=== PATIENT | male | born 1955 | race African-American/Black ===

== ENCOUNTER 2025-02-09 04:40 | Emergency (ER) | payer MEDICARE, SELFPAY ==
[2025-02-09] VITALS (18 sets, daily range): BP systolic 119–170; BP diastolic 51–91; PULSE 61–82; RESP 10–16; TEMP 36.7; O2SAT 98–100
--- NOTE | 2025-02-09 04:46 | ECG_ITS ---
Test Date: 2025-02-09 04:49:33 Measurements Intervals [place] Rate: 62 P: 44 TN: 156 QRS: 52 QRSD: 99 T: 49 QT: 414 QTc: 421 Interpretive Statements SINUS RHYTHM No previous ECG available for comparison Electronically Signed On 02-09-2025 10:19:35 CDT by Stanislav Kim M.D.
[2025-02-09 04:57] LABS: Hematocrit 37.8 % (42.0-52.0); Hemoglobin 11.8 g/dL (14.0-18.0); Immature Granulocyte Percent A 0.3 % (0-0.5); Lymphocytes Absolute Auto 3.09 K/mm3 (0.9-3.2); Mean Corpuscular HGB Conc 31.2 g/dl (32-36); Mean Corpuscular Hemoglobin 26.6 pg (26-34); Mean Corpuscular Volume 85.3 fl (80-100); Nucleated Red Blood Cells Absolute Auto 0.000 K/mm3 (0.0-0.012); Nucleated Red Blood Cells Perc 0.0 % (0.0-0.2); Platelet Count Result 250 k/mm3 (150-375); Red Blood Count 4.43 M/mm3 (4.6-6.20); White Blood Count 7.4 K/mm3 (4.5-10.0)
[2025-02-09 05:14] LABS: Alanine Aminotransferase 13 U/L (6-50); Albumin Level 3.8 g/dL (3.5-5.1); Alkaline Phosphatase 53 U/L (38-126); Anion Gap 6 mmol/L (4-12); Aspartate Amino Transferase 24 U/L (17-59); Bilirubin,Total 0.4 mg/dL (0.2-1.3); Blood Urea Nitrogen 21 mg/dL (9-20); Calcium 8.9 mg/dL (8.4-10.2); Carbon Dioxide 27 mmol/L (22-30); Chloride 103 mmol/L (98-107); Estimated CRCL calculation 56 ml/min; Estimated Glomerular Filt Rate > 60; Glucose 145 mg/dL (65-110); Potassium 3.6 mmol/L (3.4-5.0); Sodium 136 mmol/L (137-145); Total Protein 7.0 g/dL (6.3-8.2)
--- OUTSIDE RECORDS SUMMARY | 2025-02-09 05:14 | XMS_ITS ---
Author Organization [facility] Address [address] [place] [address] Care Team Providers Care Mixing Machine Tender Cork Rod Name Role Phone Silvio Weston MD Primary Care Provider [phone] Anjel Smith MD Unavailable Onel Bass MD Unavailable [phone] Katya Kramer MD Unavailable [phone] Active Problems Problem Noted Date Diagnosed Date Colorectal cancer 07/06/2023 Current Treatment and Therapy Plans No current plan information found. Past Treatment and Therapy Plans Oncology Chemotherapy Treatment Plan Name Start Date Discontinue Date Treatment Medications Discontinue Reason Plan Provider Cycles [id number]: (Fluorouracil / Leucovorin / Oxaliplatin) 14 Day Cycles - GI 08/22/2023 08/23/2023 fluorouracil (ADRUCIL)leucov orinoxaliplatin (ELOXATIN) Patient Preference Katya Kramer MD Treatment not started Lifetime Dose Tracking * Chemical Lifetime Dose Automatic Entry Manual Entr y DLP 495 mGycm 495 mGycm 0 mGycm
--- OUTSIDE RECORDS SUMMARY | 2025-02-09 05:14 | XMS_ITS | Clinical Summary ---
Author Organization [facility] Address [address] [place] [address] Phone Care Team Providers Care Supervisor Printing Shop Name Role Phone Silvio Weston MD Primary Care Provider [phone] Anjel Smith MD Unavailable Medications amLODIPine (NORVASC) 5 MG Tablet Take 1 Tablet by mouth daily. 30 Tablet 3 3 Active Additional Information Patient taking differently:5 mg OralEVERY MORNING, Reported on 03/29/2023 fluticasone (FLONASE) 50 MCG/ACT Suspension 1 [place] by Nasal route in the morning and at bedtime. Use in each nostril as directed. 16 g 2 3 Active Additional Information Patient taking differently:1 [place] NasalPRN, Use in each nostril as directed., Reported on 03/29/2023 Loperamide HCl (Loperamide A-D) 2 MG TabletIndicatio ns:Rectal cancer,Encounte r for screening for other viral diseases Take 1 Tablet by mouth See Admin Instructions. Take 2 tablets (4 mg) at the onset of diarrhea, then one tablet (2 mg) with every subsequent episode of diarrhea for a maximum of 16 mg/day. Discontinue loperamide 12 hours after diarrhea resolves. 100 Tablet 1 4 Active ondansetron (ZOFRAN) 8 MG TabletIndicatio ns:Rectal cancer,Encounte r for screening for other viral diseases Take 1 Tablet by mouth See Admin Instructions. Take 8 mg twice daily for two days following chemotherapy. After may take one tablet every 8 hours as needed for nausea. 20 Tablet 3 4 Active prochlorperazin e (COMPAZINE) 10 MG TabletIndicatio ns:Rectal cancer,Encounte r for screening for other viral diseases Take 1 Tablet by mouth every 6 hours as needed for Nausea - 2nd line. 40 Tablet 2 4 Active methylPREDNISol one (MEDROL DOSPACK) 4 MG Tablet Therapy Pack Use as per instructions on package. 21 Tablet 4 Active albuterol 108 (90 Base) MCG/ACT Aerosol Solution take 1-2 Puffs by inhalation every 6 hours as needed for Wheezing. 8.5 g 2 4 Active Active Problems Problem Noted Date Diagnosed Date Overlapping malignant neoplasm of colon 07/12/19 24 Encounter for screening for other viral diseases 07/04/2023 Allergic rhinitis 12/19/2022 Mild intermittent asthma without complication Bilateral lower extremity edema 10/17/2022 Essential hypertension, benign 10/17/2022 Rectal cancer Family History Medical History Relation Name Comments Heart Disease Brother 1 Heart Surgery Brother 1 Heart Attack Brother 2 Mental Disorder, Other Brother 3 No Known Problems Daughter Heart Disease Father Stroke Father No Known Problems Half-Sister 1 Other-comment Half-Sister 2 pneumonia Stroke Half-Sister 3 No Known Problems Half-Sister 4 Lupus Mother Cancer Son 1 colon cancer No Known Problems Son 2 Relation Name Status Comments Brother 1 Alive Brother 2 Brother 3 Alive Daughter Alive Father Half-Sister 1 Alive Half-Sister 2 Half-Sister 3 Alive Half-Sister 4 Alive Mother Son 1 Son 2 Alive Social History Tobacco Use Types Packs/Day Years Used Date Smoking Tobacco: Never Passive Smoke Exposure: Never Smokeless Tobacco: Never Tobacco Cessation:Counseling Given: No Alcohol Use Standard Drinks/Week Comments Not Currently 0 (1 standard drink = 0.6 oz pur e alcohol) [facility] Utilities Answer Date Recorded In the past 12 months has e [employer], gas, oil, or water company threatened to shut off services in your home? No 03/13/2024 Social Connection and Isolation Panel Answer Date Recorded In a typical week, how many times do you talk on the phone with family, friends, or neighbors? Twice a week 03/13/2024 Frequency of Social Gatherings with Friends and Family Not on file 03/13/2024 Attends Scientologist Services Not on file 03/13 Active Member of Clubs or Organizations Not on f ile 03/13/2024 Attends Club or Organization Meetings Not on shabnam e 03/13/2024 Marital Status Not on file 03/13/2024 AUDIT-C Answer Date Recorded Q1: How often do you have a drink containing alc ohol? Never 03/13/2024 Average Number of Drinks Not on file 024 Frequency of Binge Drinking Not on file 02/14 Overall Financial Resource Strain (CARDIA) Answe r Date Recorded How hard is it for you to pa y for the very basics like food, housing, medical care, and heating? Somewhat hard 03/13/2024 PHQ-2 Answer Date Recorded Total Score - Questions 1-9 0 02/14 [facility] of Occupat ional Health - Occupational Stress Questionnaire Answer Date Recorded Do you feel stress - tense, restless, nervous, or anxious, or unable to sleep at night because your mind is troubled all the time - these days? Not at all 03/13/2024 Exercise Vital Sign Answer Date Recorde d On average, how many days pe r week do you engage in moderate to strenuous exercise (like a brisk walk)? 1 day Minutes of Exercise per Session Not on file 03/13/2024 Hunger Vital Sign Answer Date Recorded Within the past 12 months, y ou worried that your food would run out before you got the money to buy more. Patient declined Within the past 12 months, t he food you bought just didn't last and you didn't have money to get more. Patient declined PRAPARE - Transportation Answer Date Re corded In the past 12 months, has l ack of transportation kept you from medical appointments or from getting medications? No 02/14 In the past 12 months, has l ack of transportation kept you from meetings, work, or from getting things needed for daily living? No 03/13/2024 Housing Stability Vital Sign Answer Brian e Recorded In the last 12 months, was t here a time when you were not able to pay the mortgage or rent on time? No 03/13/2024 In the past 12 months, how m any times have you moved where you were living? 1 03/13/2024 At any time in the past 12 m [facility], were you homeless or living in a intermediate (including now)? No 03/13/2024 Education Answer Date Recorded What is the highest level of school you have completed or the highest degree you have received? 12th grade 12/19/2022 Sexually Active Control Partners Comments Not Currently Female Sex and Gender Information Value Date Recorded Sex Assigned at Not on file Legal Sex Male 12:20 AM CDT Gender Identity Not on file Sexual Orientation Not on file Last Filed Vital Signs Vital Sign Reading Time Taken Comments Blood Pressure 130/80 03/13/2024 8:06 AM CDT Pulse 82 03/13/2024 8:06 AM CDT Temperature 36.8 C (98.2 F) 03/13/2024 8:06 AM CDT Respiratory Rate 18 06/20/2023 9:46 AM SKIP HOIST OPERATOR Oxygen Saturation 96% 03/13/2024 8:06 AM CDT Inhaled Oxygen Concentration - - Weight 82.1 kg (181 lb) 03/13/2024 8:06 AM CDT Height 175.3 cm (5' 9) 03/13/2024 8:06 AM CDT Body Mass Index 26.73 03/13/2024 8:06 AM CDT Plan of Treatment Health Maintenance Due Date Last Done Comments Hepatitis C Virus (HCV) Screening 1955 TdaP Immunization 1955 SARS-COV-2 Immunization (#1) 1960 Zoster Immunization (1 of 2) 1974 Cologuard 2000 Immunochemical Fecal Occult Blood 2000 Respiratory Syncytial Virus (RSV) Immunization (Adult) (1 - Risk 60-74 years 1-dose series) 2015 Medicare Initial AWV [id number] 12/13/2022 Colonoscopy 04/10/2033 04/10/2023 Colorectal Cancer Screening 04/10/2033 PSA Discussion Completed 01/09/2023, 01/09/2023 Hepatitis B Immunization Aged Out No longer eligible based on patient's age to complete this topic Human Papillomavirus (HPV) Immunization Aged Out No longer eligible based on patient's age to complete this topic Influenza Immunization Discontinued Meningococcal Immunization (ACWY) Aged Out No longer eligible based on patient's age to complete this topic Pneumococcal Immunization (5 0+ years) Discontinued Rotavirus Immunization Aged Out No lo nger eligible based on patient's age to complete this topic Procedures Procedure Name Priority Date/Time Associated Diagnosis Comments PSA SCREEN Routine 01/09/2023 12:00 AM CDT Screening for prostate cancer from Last 3 Months or Most Recently Relevant to Health Maintenance Results * PSA SCREEN (01/09/2023 12:00 AM CDT) PSA (PROSTATE SPECIFIC ANTIGEN) 1.80 ng/mL SCAN Blood 01/09/2023 us Silvio Weston MD CHEMISTRY ORDERABLES Final Result SCAN from Last 3 Months or Most Recently Relevant to Health Maintenance Insurance [facility]IC[facility] [place] [id number] Care Teams Supervisor Printing Shop Relationship Specialty Start Date End Date Silvio Weston MD PCP - General Internal Medicine 10/17/22 Anjel Smith MD [address] [address] Consulting Physician Colon and Rectal Surgery 03/14/23
--- OUTSIDE RECORDS SUMMARY | 2025-02-09 05:14 | XMS_ITS | Clinical Summary ---
Author Organization [facility] Address [address] [place] [address] Care Team Providers Care Laborer Gold Leaf Name Role Phone Silvio Weston MD Primary Care Provider [phone] Anjel Smith MD Unavailable Onel Bass MD Unavailable [phone] Katya Kramer MD Unavailable [phone] Allergies No known active allergies Medications albuterol HFA (PROVENTIL HFA,VENTOLIN HFA,PROAIR HFA) 90 mcg/actuation inhaler INHALE 1 TO 2 PUFFS BY MOUTH EVERY 6 HOURS NEEDED FOR WHEEZING 3 Active amLODIPine (NORVASC) 5 mg tablet Take 1 tablet (5 mg total) by mouth daily 3 Active fluticasone propionate (FLONASE) 50 mcg/actuation nasal spray Administer 1 spray into affected nostril(s) 2 (two) times a day 3 Active loperamide (IMODIUM A-D) 2 mg tablet Take 1 tablet (2 mg total) by mouth 4 Active Active Problems Problem Noted Date Diagnosed Date Colorectal cancer 07/06/2023 Surgical History Surgery Date Site/Laterality Comments COLONOSCOPY Medical History Medical History Date Comments Hypertension Colon cancer (HCC) Family History Medical History Relation Name Comments Stroke Paternal Grandfather Diabetes Paternal Grandmother Stroke Paternal Grandmother Relation Name Status Comments Paternal Grandfather Paternal Grandmother Social History Tobacco Use Types Packs/Day Years Used Date Smoking Tobacco: Never Smokeless Tobacco: Never Tobacco Cessation:Counseling Given: No AUDIT-C Answer Date Recorded Q1: How often do you have a drink containing alc ohol? Monthly or less 07/21/2023 Q2: How many drinks containi ng alcohol do you have on a typical day when you are drinking? 1 or 2 07/21/2023 Q3: How often do you have si x or more drinks on one occasion? Never 07/21/2023 Personal Safety Answer Date Recorded Have you ever been in or are you currently in a harmful physical or emotional relationship or is someone making you feel afraid or unsafe? Denies 07/21/2023 Sex and Gender Information Value Date Recorded Sex Assigned at Not on file Legal Sex Male 7:31 PM SENIOR COMMUNICATIONS ENGINEER Gender Identity Not on file Sexual Orientation Not on file Obstetrics History Last Filed Vital Signs Vital Sign Reading Time Taken Comments Blood Pressure 145/86 08/08/2023 2:51 PM CDT Pulse 60 08/08/2023 2:51 PM CDT Temperature 36.3 C (97.3 F) 08/08/2023 2:51 PM CDT Respiratory Rate 18 08/08/2023 2:51 PM CDT Oxygen Saturation 100% 08/08/2023 2:51 PM CDT Inhaled Oxygen Concentration - - Weight 81 kg (178 lb 9.6 oz) 08/08/2023 2:51 PM CDT Height 175.3 cm (5' 9) 07/21/2023 9:33 AM SENIOR COMMUNICATIONS ENGINEER Body Mass Index 26.37 07/21/2023 9:33 AM SENIOR COMMUNICATIONS ENGINEER Plan of Treatment Health Maintenance Due Date Last Done Comments Colon Cancer Screening-Colonoscopy 1955 Depression Screening 1955 Hepatitis C Screening 1955 Prostate Cancer Screening-PSA 1955 DTaP/Tdap/Td Vaccine (1 - Tdap) 1966 Hepatitis B Screening 1973 Pneumococcal vaccine 65+ (1 of 2 - PCV) 1974 Zoster Vaccine (1 of 2) 2005 Well Visit 65+ 2020 Fall Risk Assessment 07/20/2024 07/21/2023 Influenza Vaccine (#1) 2025 Abdominal Aortic Aneurysm (AAA) Screen Completed , 04/14/2023 Procedures Procedure Name Priority Date/Time Associated Diagnosis Comments CT CHEST ABDOMEN PELVIS W CONTRAST Schedule Routine, Read Routine (OP Routine) 07/14/2023 3:56 PM SENIOR COMMUNICATIONS ENGINEER Malignant neoplasm of colon, unspecified part of colon (HCC) from Last 3 Months or Most Recently Relevant to Health Maintenance Results * CT chest abdomen pelvis with contrast (07/14/2023 3:56 PM SENIOR COMMUNICATIONS ENGINEER) Anatomical Region Laterality Modality Body N/A Computed Tomogra phy 07/14/2023 4:18 PM SENIOR COMMUNICATIONS ENGINEER Impressions 07/14/2023 4:18 PM SENIOR COMMUNICATIONS ENGINEER 1. Thickening of the rectum with multiple mildly prominent adjacent mesorectal lymph nodes suspicious for reported rectal adenocarcinoma. This can be better assessed with rectal protocol MRI. No definite CT correlate for patient's reported transverse colon adenocarcinoma. 2. No evidence of metastatic disease within the chest. Electronically signed by: Maico Fay M.D. Narrative 07/14/2023 4:18 PM SENIOR COMMUNICATIONS ENGINEER EXAMINATION: Computed tomography of the chest, abdomen and pelvis with intravenous contrast HISTORY: 60-year-old male with recently diagnosed rectal adenocarcinoma as well as invasive adenocarcinoma transverse colon. TECHNIQUE: Transaxial computed tomographic images of the chest, abdomen and pelvis were obtained with intravenous contrast according to the standard protocol after the uneventful administration of 75 mL Opti-Ray 350 intravenous contrast. COMPARISON: None FINDINGS: Chest: Thyroid gland is normal. No suspicious lymphadenopathy in the chest. Heart size is normal. There is no pericardial effusion. Mild atherosclerosis of the thoracic aorta. Which is normal in caliber. Esophagus is normal. Atelectasis in the lung bases. No suspicious pulmonary nodule. No pneumothorax or pleural effusion. Abdomen/Pelvis: Too small to characterize hypoattenuating lesion within the right hepatic lobe. Gallbladder is normal. The main portal vein is patent. Pancreas is normal. The spleen is normal. Bilateral renal cysts are noted. There is no hydronephrosis. Adrenal glands are normal. Bladder is normal. Mild hypertrophy of the median lobe of the prostate. Focal soft tissue thickening within the low rectum may represent reported adenocarcinoma. The remainder of the large bowel is normal in caliber several small areas of questionable large bowel wall thickening could represent peristalsis. No definite correlates for additional sites of biopsy-proven disease in the transverse colon. The appendix is normal. Small bowel is normal in course and caliber. Abdominal aorta is normal in course and caliber. There is mild atherosclerosis of the pelvic arterial vasculature. Multiple mildly prominent mesorectal lymph nodes are noted. For reference series 2, image 256 and 250. No additional sites of suspicious lymphadenopathy within the abdomen or pelvis. No suspicious osseous lesion. Procedure Note Maico Fay MD - 07/14/2023 EXAMINATION: Computed tomography of the chest, abdomen and pelvis with intravenous contrast HISTORY: 60-year-old male with recently diagnosed rectal adenocarcinoma as well as invasive adenocarcinoma transverse colon. TECHNIQUE: Transaxial computed tomographic images of the chest, abdomen and pelvis were obtained with intravenous contrast according to the standard protocol after the uneventful administration of 75 mL Opti-Ray 350 intravenous contrast. COMPARISON: None FINDINGS: Chest: Thyroid gland is normal. No suspicious lymphadenopathy in the chest. Heart size is normal. There is no pericardial effusion. Mild atherosclerosis of the thoracic aorta. Which is normal in caliber. Esophagus is normal. Atelectasis in the lung bases. No suspicious pulmonary nodule. No pneumothorax or pleural effusion. Abdomen/Pelvis: Too small to characterize hypoattenuating lesion within the right hepatic lobe. Gallbladder is normal. The main portal vein is patent. Pancreas is normal. The spleen is normal. Bilateral renal cysts are noted. There is no hydronephrosis. Adrenal glands are normal. Bladder is normal. Mild hypertrophy of the median lobe of the prostate. Focal soft tissue thickening within the low rectum may represent reported adenocarcinoma. The remainder of the large bowel is normal in caliber several small areas of questionable large bowel wall thickening could represent peristalsis. No definite correlates for additional sites of biopsy-proven disease in the transverse colon. The appendix is normal. Small bowel is normal in course and caliber. Abdominal aorta is normal in course and caliber. There is mild atherosclerosis of the pelvic arterial vasculature. Multiple mildly prominent mesorectal lymph nodes are noted. For reference series 2, image 256 and 250. No additional sites of suspicious lymphadenopathy within the abdomen or pelvis. No suspicious osseous lesion. IMPRESSION: 1. Thickening of the rectum with multiple mildly prominent adjacent mesorectal lymph nodes suspicious for reported rectal adenocarcinoma. This can be better assessed with rectal protocol MRI. No definite CT correlate for patient's reported transverse colon adenocarcinoma. 2. No evidence of metastatic disease within the chest. Electronically signed by: Maico Fay M.D. [facility] [place], [place]'[facility] Judy Kramer MD IMG CT PROCEDURES Final R esult from Last 3 Months or Most Recently Relevant to Health Maintenance Insurance [employer] Advance Directives For more information, please contact: [phone] * Full Code (Latest Code Status on File) Date Activated Date Inactivated Comments 07/21/2023 9:28 AM 07/21/2023 3:08 PM Care Teams Laborer Gold Leaf Relationship Specialty Start Date End Date Silvio Weston MD [address] [place] [address] PCP - General Internal Medicine 06/19/23 Anjel Smith MD [address] [address] Colon and Rectal Surgery 06/19/23 Onel Bass MD [address] [place] [address] Referring Physician Hematology and Oncology 06/19/23 Katya Kramer MD [address] [facility], [facility] [address] [place] [address] Consulting Physician Medical Oncology 07/18/23
--- OUTSIDE RECORDS SUMMARY | 2025-02-09 05:14 | XMS_ITS ---
Author Organization [facility] Address [address] [place] [address] Phone Care Team Providers Care Channel Account Manager Name Role Phone Silvio Weston MD Primary Care Provider Anjel Smith MD Unavailable Active Problems Problem Noted Date Diagnosed Date Overlapping malignant neoplasm of colon 07/12/19 Encounter for screening for other viral diseases 07/04/2023 Allergic rhinitis 12/19/2022 Mild intermittent asthma without complication Bilateral lower extremity edema 10/17/2022 Essential hypertension, benign 10/17/2022 Rectal cancer Current Treatment and Therapy Plans [facility]: mFOLFOX6 (Fluorouracil/Leucovorin/OXALIplatin) - 14 Day Cycle - Colon* Plan Start Date:05/07/2023 Plan Provider:Onel Bass MD Linked Problems Rectal cancerEncounter for s creening for other viral diseases Treatment Medications Current Day (Day 1 , Cycle 1 - Planned for 07/04/2023) Next Day (Day 3, Cycle 1 - Planned for 07/05/2023) 5-FU (EFUDEX) 46 HR chemo infusion for home pumpfluorouracil (ADRUCIL)leucovorin (WELLCOVORIN) IVPBoxaliplatin (ELOXATIN) chemo infusion fluorouracil (ADRUCIL) 2,400 mg/m2 = 4,850 mg in sodium chloride 0.9 % 138 mL total volume chemo infusion for home pumpfluorouracil (ADRUCIL) injection 800 mgleucovorin (WELLCOVORIN) 810 mg in dextrose 5 % 250 mL IVPBoxaliplatin (ELOXATIN) 170 mg in dextrose 5 % 500 mL chemo infusion No medications scheduled. Past Treatment and Therapy Plans No past plan information found.
--- NOTE | 2025-02-09 06:06 | ED.DIZZY ---
HPI - Dizziness General Chief Complaint: Syncope Stated Complaint: Near syncope/orthostatic Time Seen by Provider: 02/09/25 04:48 History of Present Illness HPI Narrative: Patient is a 69-year-old male who presents to the emergency department this morning complaining of a near syncopal episode. Patient did present to the ED via EMS. Upon arrival, was noted to have positive orthostatics. Patient admits that all he did yesterday was drink wine throughout the whole day and did not drink any water which is unusual for him. States that he usually is very good about maintaining his oral hydration. Denies any falls or trauma, any head injury. Related Data Allergies Allergy/AdvReac Type Severity Reaction Status Date / Time No Known Allergies Allergy Verified 02/09/25 06:05 Review of Systems Review of Systems: All systems are reviewed and are negative unless stated otherwise in the HPI. Exam Narrative: General: Alert, awake, afebrile, in no acute distress. HEENT: PERRL, no rhinorrhea, no post nasal drip, oropharynx clear. Neck: Trachea midline, no JVD, no lymphadenopathy. Cardiovascular: Regular rate and rhythm, no murmurs, rubs or gallops, no peripheral edema. Respiratory: Clear to auscultation bilaterally, no tachypnea, no wheezing, no rhonchi, no rubs, no respiratory distress. Abdomen: Soft, nontender, nondistended, no rebound, no guarding, no peritoneal signs. Musculoskeletal: No joint swelling or deformity, normal muscle tone. Skin: No rashes or petechia, no signs of infection. Psychiatric: Alert and oriented, normal behavior and judgment for situation. Neurological: Alert and oriented to person, place, and time. Follows all commands. No focal deficits, speech is clear and fluent. Course Vital Signs Vital signs: Vital Signs Temperature 98.1 F 02/09/25 04:48 Pulse Rate 65 02/09/25 04:48 Respiratory Rate 14 02/09/25 04:48 Blood Pressure 142/79 H 02/09/25 04:48 Pulse Oximetry 99 02/09/25 04:48 Oxygen Delivery Room Air 02/09/25 04:48 Temperature 98.1 F 02/09/25 04:48 Pulse Rate 65 02/09/25 04:48 Respiratory Rate 14 02/09/25 04:48 Blood Pressure 142/79 H 02/09/25 04:48 Pulse Oximetry 99 02/09/25 04:48 Oxygen Delivery Room Air 02/09/25 04:48 MDM - Dizziness MDM Narrative Medical decision making narrative: The patient was evaluated by myself in the emergency department. History is obtained from patient who is an independent historian and physical exam was performed. External medical records were reviewed at this time. IV was established and pertinent tests were ordered. Patient was administered 1 L IVF bolus with normal saline. EKG was obtained which revealed sinus rhythm rate 62 beats per min. No ST changes, T wave inversions or evidence of acute ischemia. EKG was independently interpreted by me and is currently pending official cardiology read. Laboratory results obtained revealing no acute process. Patient refused any imaging studies. Differential diagnosis considerations include dehydration, electrolyte derangements, acute viral syndrome, acute kidney injury. Comorbidities impacting this visit include none. I have evaluated and discussed social determinants of health with the patient that could potentially impact subsequent diagnosis and treatment plans. On repeat assessment of the patient, reevaluation revealed that the patient is doing well and is in no acute distress. Patient symptoms have improved since he arrived to our emergency department. Repeat vital signs were all reviewed and noted to be stable. Differential diagnosis and treatment plan were discussed with the patient at bedside. Patient agrees with discussion and after shared medical decision making agrees with discharge. All questions were answered to the patient's satisfaction. Patient will follow up with his PCP in 3-5 days. Patient was provided with strict return precautions and instructed to return to the emergency department if any new or worsening symptoms develop. The patient was discharged in stable condition. Lab Data 02/09/25 04:51 02/09/25 04:51 Labs: Lab Results 02/09/25 Range/Units 04:51 WBC 7.4 (4.5-10.0) K/mm3 RBC 4.43 L (4.6-6.20) M/mm3 Hgb 11.8 L (14.0-18.0) g/dL Hct 37.8 L (42.0-52.0) % MCV 85.3 (80-100) fl MCH 26.6 (26-34) pg MCHC 31.2 L (32-36) g/dl RDW 14.3 (11.5-14.5) % Plt Count 250 (150-375) k/mm3 MPV 9.3 (7.4-10.4) fl Immature Gran % (Auto) 0.3 (0-0.5) % Neut % (Auto) 42.2 L (45.5-73.1) % Lymph % (Auto) 41.7 (18.3-44.2) % [place] % (Auto) 12.7 H (2.6-8.5) % Eos % (Auto) 2.7 (0-4.4) % Baso % (Auto) 0.4 (0.2-1.2) % Lymph # (Auto) 3.09 (0.9-3.2) K/mm3 [place] # (Auto) 0.9 H (0.1-0.6) K/mm3 Eos # (Auto) 0.2 (0-0.3) K/mm3 Baso # (Auto) 0.0 (0.0-0.1) K/mm3 Abs Immat Gran (auto) 0.02 (0.00-0.031) K/mm3 Absolute Neuts (auto) 3.1 (1.3-6.7) K/mm3 Absolute Nucleated RBC 0.000 (0.0-0.012) K/mm3 Nucleated RBC % 0.0 (0.0-0.2) % Sodium 136 L (137-145) mmol/L Potassium 3.6 (3.4-5.0) mmol/L Chloride 103 (98-107) mmol/L Carbon Dioxide 27 (22-30) mmol/L Anion Gap 6 (4-12) mmol/L BUN 21 H (9-20) mg/dL Creatinine 1.06 (0.7-1.3) mg/dL Estim Creat Clear Calc 56 ml/min Estimated GFR > 60 (59 - ) Glucose 145 H (65-110) mg/dL Calcium 8.9 (8.4-10.2) mg/dL Total Bilirubin 0.4 (0.2-1.3) mg/dL AST 24 (17-59) U/L ALT 13 (6-50) U/L Alkaline Phosphatase 53 (38-126) U/L Total Protein 7.0 (6.3-8.2) g/dL Albumin 3.8 (3.5-5.1) g/dL Discharge Plan Discharge Clinical Impression: Orthostatic hypotension, Near syncope Patient Disposition: Home Condition: Improved Instructions: Antibiotic Form, Near Syncope (ED) Additional Instructions: Please follow-up with the family doctor within the next 3-5 days. Return to the ED if any new or worsening symptoms develop. Maintain your oral hydration by drinking lots of water throughout the day. Patient Language: Vietnamese Follow-up/Referrals: Enrico,Silvio Lloyd MD [Primary Care Provider, Unknown] - 3 Days Time of Disposition: 06:03
[2025-02-09] MEDS: SODIUM CHLORIDE 0.9% IV 1,000 ML 999 ML IV CONT (06:07)
== END 2025-02-09 07:03 | disposition home or self-care (01) ==
PROVIDERS: Emergency Provider Emergency Medicine; PCP Internal Medicine
DX: I95.1 Orthostatic hypotension (principal)
CPT/HCPCS: 36415; 80053; 85025; 93005; 96360; 99284; J7030